=== PATIENT | female | born 1990 | race Caucasian/White ===

== ENCOUNTER 2022-11-30 01:42 | Outpatient (RCR) | payer OTHER, SELFPAY ==
[2022-11-30] MEDS: Normal Saline Flush 10 ML SYR IVP (11:32)
[2022-11-30 11:39] LABS: Abs Immature Grans 0.04 10^3/uL (0.0-0.06); Absolute Basophil Count 0.01 10^3/uL (0.0-0.2); Absolute Eosinophil Count 0.11 10^3/uL (0.0-0.7); Absolute Lymphocyte Count 0.38 10^3/uL (1.2-3.4); Absolute Monocyte Count 0.54 10^3/uL (0.1-0.8); Absolute Neutrophil Count 9.12 10^3/uL (1.2-6.7); Basophils % 0.1; Eosinophils % 1.1; HGB 9.6 g/dL (11.2-15.7); Immature Grans % 0.4; Lymphocytes % 3.7; MCH 24.3 pg (27.0-33.0); MCV 79 fL (80-95); MPV 9.8 fL (8.0-11.0); Monocytes % 5.3; Neutrophils % 89.4; Platelet Count 384 10^3/uL (130-400); RBC 3.95 10^6/uL (3.93-5.22); RDW 15.6 % (11.7-14.6); RDW-SD 44.5 fL
[2022-11-30 11:42] LABS: ESR 66 mm/hr (0-20)
[2022-11-30 12:04] LABS: ALT 24 U/L (14-59); AST 13 U/L (15-37); Albumin 2.6 g/dL (3.4-5.0); Alkaline Phosphatase 151 U/L (46-116); Anion Gap 6.6 mmol/L (3-11); BUN 7 mg/dL (7-18); Bilirubin, Total 0.4 mg/dL (0.2-1.0); CO2 27.4 mmol/L (21.0-32.0); CREATININE 0.7 mg/dL (0.55-1.02); Calcium 8.9 mg/dL (8.5-10.1); Chloride 102 mmol/L (98-107); Estimated GFR 116.31 (mL/min/1.73m2); FREE T4 1.19 ng/dL (0.76-1.46); Glucose 126 mg/dL (74-106); Magnesium 1.9 mg/dL (1.8-2.4); PHOSPHORUS 3.6 mg/dL (2.6-4.7); Potassium 3.9 mmol/L (3.5-5.1); Sodium 136 mmol/L (136-145); TSH 1.41 uIU/mL (0.36-3.74); Total Protein 7.6 g/dL (6.4-8.2); Uric Acid 3.1 mg/dL (2.6-6.0)
== END 2022-12-15 23:59 | disposition home or self-care (01) ==
LOC: INF 01:42
PROVIDERS: PCP Physician Assistant; Visit Provider Internal Medicine Hematology & Oncology
DX: Z45.2 Encounter for adjustment and management of vascular access device (principal); C81.28 Mixed cellularity Hodgkin lymphoma, lymph nodes of multiple sites
CPT/HCPCS: 36591; 80053; 85652; 83735; 84100; 84439; 84443; 84550; 85025

== ENCOUNTER 2023-01-10 02:42 | Outpatient (RCR) | payer OTHER, SELFPAY ==
[2022-12-20] MEDS: Normal Saline Flush 10 ML SYR IVP (09:52)
[2022-12-20 10:31] LABS: Abs Immature Grans 0.01 10^3/uL (0.0-0.06); Absolute Basophil Count 0.05 10^3/uL (0.0-0.2); Absolute Eosinophil Count 0.01 10^3/uL (0.0-0.7); Absolute Lymphocyte Count 1.08 10^3/uL (1.2-3.4); Absolute Monocyte Count 0.32 10^3/uL (0.1-0.8); Absolute Neutrophil Count 2.07 10^3/uL (1.2-6.7); Basophils % 1.4; Eosinophils % 0.3; HGB 11.5 g/dL (11.2-15.7); Immature Grans % 0.3; Lymphocytes % 30.5; MCHC 31.1 % (32.0-36.0); MCV 80 fL (80-95); MPV 9.4 fL (8.0-11.0); Neutrophils % 58.5; Platelet Count 282 10^3/uL (130-400); RDW 19.9 % (11.7-14.6); WBC 3.54 10^3/uL (4.4-10.8)
[2022-12-20 10:34] LABS: ESR 38 mm/hr (0-20)
[2022-12-20 10:55] LABS: ALT 42 U/L (14-59); AST 33 U/L (15-37); Albumin 3.7 g/dL (3.4-5.0); Alkaline Phosphatase 95 U/L (46-116); Anion Gap 8.9 mmol/L (3-11); BUN 9 mg/dL (7-18); Bilirubin, Total 0.5 mg/dL (0.2-1.0); CO2 26.1 mmol/L (21.0-32.0); CREATININE 0.7 mg/dL (0.55-1.02); Calcium 9.3 mg/dL (8.5-10.1); Chloride 103 mmol/L (98-107); Estimated GFR 116.31 (mL/min/1.73m2); Glucose 117 mg/dL (74-106); Magnesium 1.9 mg/dL (1.8-2.4); PHOSPHORUS 3.4 mg/dL (2.6-4.7); Potassium 3.6 mmol/L (3.5-5.1); Sodium 138 mmol/L (136-145); TSH 4.86 uIU/mL (0.36-3.74); Total Protein 8.1 g/dL (6.4-8.2); Uric Acid 3.7 mg/dL (2.6-6.0)
[2023-01-10] MEDS: Normal Saline Flush 10 ML SYR IVP (09:39)
[2023-01-10 09:51] LABS: Abs Immature Grans 0.01 10^3/uL (0.0-0.06); Absolute Basophil Count 0.03 10^3/uL (0.0-0.2); Absolute Eosinophil Count 0.03 10^3/uL (0.0-0.7); Absolute Lymphocyte Count 0.95 10^3/uL (1.2-3.4); Absolute Monocyte Count 0.39 10^3/uL (0.1-0.8); Basophils % 0.8; Eosinophils % 0.8; HCT 37.3 % (36.0-46.0); HGB 12.4 g/dL (11.2-15.7); Immature Grans % 0.3; Lymphocytes % 23.9; MCH 26.8 pg (27.0-33.0); MCHC 33.2 % (32.0-36.0); MCV 81 fL (80-95); MPV 9.5 fL (8.0-11.0); Monocytes % 9.8; Neutrophils % 64.4; Platelet Count 266 10^3/uL (130-400); RBC 4.62 10^6/uL (3.93-5.22); RDW 18.8 % (11.7-14.6); RDW-SD 54.9 fL; WBC 3.98 10^3/uL (4.4-10.8)
[2023-01-10 09:54] LABS: Absolute Neutrophil Count 2.56 10^3/uL (1.2-6.7)
[2023-01-10 09:56] LABS: ESR 24 mm/hr (0-20)
[2023-01-10 10:21] LABS: ALT 38 U/L (14-59); AST 23 U/L (15-37); Albumin 3.8 g/dL (3.4-5.0); Alkaline Phosphatase 87 U/L (46-116); Anion Gap 8.7 mmol/L (3-11); BUN 11 mg/dL (7-18); Bilirubin, Total 0.4 mg/dL (0.2-1.0); CO2 26.3 mmol/L (21.0-32.0); CREATININE 0.6 mg/dL (0.55-1.02); Calcium 9.5 mg/dL (8.5-10.1); Chloride 103 mmol/L (98-107); Estimated GFR 120.72 (mL/min/1.73m2); FREE T4 0.78 ng/dL (0.76-1.46); Glucose 98 mg/dL (74-106); Magnesium 1.8 mg/dL (1.8-2.4); PHOSPHORUS 3.7 mg/dL (2.6-4.7); Potassium 3.7 mmol/L (3.5-5.1); Sodium 138 mmol/L (136-145); TSH 3.97 uIU/mL (0.36-3.74); Total Protein 8.2 g/dL (6.4-8.2); Uric Acid 3.8 mg/dL (2.6-6.0)
== END 2023-01-14 23:59 | disposition home or self-care (01) ==
LOC: INF 02:42
PROVIDERS: PCP Physician Assistant; Visit Provider Internal Medicine Hematology & Oncology
DX: Z45.2 Encounter for adjustment and management of vascular access device (principal); C81.28 Mixed cellularity Hodgkin lymphoma, lymph nodes of multiple sites
CPT/HCPCS: 36591; 80053; 85652; 83735; 84100; 84439; 84443; 84550; 85025

== ENCOUNTER 2023-01-31 02:45 | Outpatient (RCR) | payer OTHER, SELFPAY ==
[2023-01-31] MEDS: Normal Saline Flush 10 ML SYR IVP (08:22)
[2023-01-31 08:25] LABS: Abs Immature Grans 0.01 10^3/uL (0.0-0.06); Absolute Basophil Count 0.03 10^3/uL (0.0-0.2); Absolute Eosinophil Count 0.03 10^3/uL (0.0-0.7); Absolute Lymphocyte Count 0.91 10^3/uL (1.2-3.4); Absolute Monocyte Count 0.32 10^3/uL (0.1-0.8); Absolute Neutrophil Count 1.68 10^3/uL (1.2-6.7); HCT 37.9 % (36.0-46.0); HGB 12.4 g/dL (11.2-15.7); Immature Grans % 0.3; Lymphocytes % 30.5; MCH 26.8 pg (27.0-33.0); MCHC 32.7 % (32.0-36.0); MCV 82 fL (80-95); MPV 9.1 fL (8.0-11.0); Monocytes % 10.7; Neutrophils % 56.5; Platelet Count 236 10^3/uL (130-400); RBC 4.63 10^6/uL (3.93-5.22); RDW 17.4 % (11.7-14.6); RDW-SD 51.7 fL; WBC 2.98 10^3/uL (4.4-10.8)
[2023-01-31 08:28] LABS: ESR 13 mm/hr (0-20)
[2023-01-31 08:53] LABS: ALT 37 U/L (14-59); AST 23 U/L (15-37); Albumin 3.8 g/dL (3.4-5.0); Alkaline Phosphatase 87 U/L (46-116); Anion Gap 10.1 mmol/L (3-11); BUN 12 mg/dL (7-18); Bilirubin, Total 0.5 mg/dL (0.2-1.0); CO2 25.9 mmol/L (21.0-32.0); CREATININE 0.7 mg/dL (0.55-1.02); Calcium 9.5 mg/dL (8.5-10.1); Chloride 103 mmol/L (98-107); Estimated GFR 116.31 (mL/min/1.73m2); FREE T4 0.69 ng/dL (0.76-1.46); Glucose 116 mg/dL (74-106); Magnesium 1.7 mg/dL (1.8-2.4); PHOSPHORUS 3.9 mg/dL (2.6-4.7); Potassium 3.6 mmol/L (3.5-5.1); Sodium 139 mmol/L (136-145); TSH 3.42 uIU/mL (0.36-3.74); Uric Acid 3.3 mg/dL (2.6-6.0)
== END 2023-02-14 23:59 | disposition home or self-care (01) ==
LOC: INF 02:45
PROVIDERS: PCP Physician Assistant; Visit Provider Internal Medicine Hematology & Oncology
DX: C81.28 Mixed cellularity Hodgkin lymphoma, lymph nodes of multiple sites (principal); Z45.2 Encounter for adjustment and management of vascular access device
CPT/HCPCS: 36591; 80053; 85652; 83735; 84100; 84439; 84443; 84550; 85025

== ENCOUNTER 2023-03-07 02:18 | Outpatient (RCR) | payer OTHER, SELFPAY ==
[2023-02-21] MEDS: Normal Saline Flush 10 ML SYR IVP (09:57)
[2023-02-21 10:10] LABS: Abs Immature Grans 0.01 10^3/uL (0.0-0.06); Absolute Basophil Count 0.03 10^3/uL (0.0-0.2); Absolute Eosinophil Count 0.01 10^3/uL (0.0-0.7); Absolute Monocyte Count 0.39 10^3/uL (0.1-0.8); Absolute Neutrophil Count 2.59 10^3/uL (1.2-6.7); Basophils % 0.7; Eosinophils % 0.2; HCT 38.7 % (36.0-46.0); Immature Grans % 0.2; Lymphocytes % 28.4; MCH 27.7 pg (27.0-33.0); MCHC 33.6 % (32.0-36.0); MCV 83 fL (80-95); MPV 9.6 fL (8.0-11.0); Monocytes % 9.2; Neutrophils % 61.3; Platelet Count 298 10^3/uL (130-400); RBC 4.69 10^6/uL (3.93-5.22); RDW 16.8 % (11.7-14.6); RDW-SD 50.4 fL; WBC 4.23 10^3/uL (4.4-10.8)
[2023-02-21 10:17] LABS: ESR 24 mm/hr (0-20)
[2023-02-21 10:43] LABS: ALT 45 U/L (14-59); AST 24 U/L (15-37); Albumin 4.1 g/dL (3.4-5.0); Alkaline Phosphatase 93 U/L (46-116); Anion Gap 7.2 mmol/L (3-11); BUN 11 mg/dL (7-18); Bilirubin, Total 0.5 mg/dL (0.2-1.0); CO2 27.8 mmol/L (21.0-32.0); CREATININE 0.7 mg/dL (0.55-1.02); Calcium 9.6 mg/dL (8.5-10.1); Chloride 102 mmol/L (98-107); Estimated GFR 116.31 (mL/min/1.73m2); FREE T4 0.77 ng/dL (0.76-1.46); Glucose 98 mg/dL (74-106); Magnesium 1.9 mg/dL (1.8-2.4); PHOSPHORUS 3.7 mg/dL (2.6-4.7); Sodium 137 mmol/L (136-145); Total Protein 8.5 g/dL (6.4-8.2)
[2023-03-07] MEDS: Normal Saline Flush 10 ML SYR IVP (11:32)
[2023-03-07 11:43] LABS: Absolute Basophil Count 0.01 10^3/uL (0.0-0.2); Absolute Eosinophil Count 0.08 10^3/uL (0.0-0.7); Absolute Lymphocyte Count 0.84 10^3/uL (1.2-3.4); Absolute Monocyte Count 0.21 10^3/uL (0.1-0.8); Absolute Neutrophil Count 1.42 10^3/uL (1.2-6.7); Basophils % 0.4; Eosinophils % 3.1; Lymphocytes % 32.8; MCH 28.1 pg (27.0-33.0); MCHC 34.3 % (32.0-36.0); MCV 82 fL (80-95); MPV 9.3 fL (8.0-11.0); Monocytes % 8.2; Neutrophils % 55.5; Platelet Count 133 10^3/uL (130-400); RBC 4.27 10^6/uL (3.93-5.22); RDW 14.8 % (11.7-14.6); WBC 2.56 10^3/uL (4.4-10.8)
[2023-03-07 11:46] LABS: ESR 28 mm/hr (0-20)
[2023-03-07 12:06] LABS: ALT 77 U/L (14-59); AST 36 U/L (15-37); Albumin 3.9 g/dL (3.4-5.0); Alkaline Phosphatase 106 U/L (46-116); Anion Gap 6.8 mmol/L (3-11); BUN 11 mg/dL (7-18); Bilirubin, Total 0.6 mg/dL (0.2-1.0); CO2 30.2 mmol/L (21.0-32.0); CREATININE 0.7 mg/dL (0.55-1.02); Calcium 9.3 mg/dL (8.5-10.1); Chloride 102 mmol/L (98-107); Estimated GFR 116.31 (mL/min/1.73m2); FREE T4 0.68 ng/dL (0.76-1.46); Glucose 107 mg/dL (74-106); Sodium 139 mmol/L (136-145); TSH 2.77 uIU/mL (0.36-3.74); Total Protein 8.4 g/dL (6.4-8.2)
== END 2023-03-16 23:59 | disposition home or self-care (01) ==
LOC: INF 02:18
PROVIDERS: PCP Physician Assistant; Visit Provider Internal Medicine Hematology & Oncology
DX: Z45.2 Encounter for adjustment and management of vascular access device (principal); C81.28 Mixed cellularity Hodgkin lymphoma, lymph nodes of multiple sites
CPT/HCPCS: 36591; 80053; 85652; 83735; 84100; 84439; 84443; 84550; 85025

== ENCOUNTER 2023-03-28 02:25 | Outpatient (RCR) | payer OTHER, SELFPAY ==
[2023-03-21] MEDS: Normal Saline Flush 10 ML SYR IVP (08:35)
[2023-03-21 09:07] LABS: Abs Immature Grans 0.12 10^3/uL (0.0-0.06); Absolute Basophil Count 0.03 10^3/uL (0.0-0.2); Absolute Eosinophil Count 0.15 10^3/uL (0.0-0.7); Absolute Lymphocyte Count 1.07 10^3/uL (1.2-3.4); Absolute Monocyte Count 0.31 10^3/uL (0.1-0.8); Absolute Neutrophil Count 4.11 10^3/uL (1.2-6.7); Basophils % 0.5; Eosinophils % 2.6; HCT 34.4 % (36.0-46.0); HGB 11.7 g/dL (11.2-15.7); Immature Grans % 2.1; Lymphocytes % 18.5; MCH 28.6 pg (27.0-33.0); MCV 84 fL (80-95); MPV 9.5 fL (8.0-11.0); Monocytes % 5.4; Neutrophils % 70.9; Platelet Count 388 10^3/uL (130-400); RBC 4.09 10^6/uL (3.93-5.22); RDW 16.2 % (11.7-14.6); RDW-SD 42.4 fL; WBC 5.79 10^3/uL (4.4-10.8)
[2023-03-21 09:11] LABS: ESR 24 mm/hr (0-20)
[2023-03-21 09:26] LABS: ALT 77 U/L (14-59); AST 38 U/L (15-37); Albumin 3.9 g/dL (3.4-5.0); Alkaline Phosphatase 108 U/L (46-116); Anion Gap 10.5 mmol/L (3-11); BUN 10 mg/dL (7-18); Bilirubin, Total 0.3 mg/dL (0.2-1.0); CO2 27.5 mmol/L (21.0-32.0); CREATININE 0.8 mg/dL (0.55-1.02); Calcium 9.3 mg/dL (8.5-10.1); Chloride 102 mmol/L (98-107); Estimated GFR 99.09 (mL/min/1.73m2); FREE T4 0.82 ng/dL (0.76-1.46); Glucose 132 mg/dL (74-106); Potassium 3.5 mmol/L (3.5-5.1); Sodium 140 mmol/L (136-145); TSH 5.37 uIU/mL (0.36-3.74); Total Protein 8.1 g/dL (6.4-8.2)
[2023-03-28] MEDS: Normal Saline Flush 10 ML SYR IVP (08:06)
[2023-03-28 08:15] LABS: Abs Immature Grans 0.01 10^3/uL (0.0-0.06); Absolute Basophil Count 0.02 10^3/uL (0.0-0.2); Absolute Eosinophil Count 0.03 10^3/uL (0.0-0.7); Absolute Lymphocyte Count 0.69 10^3/uL (1.2-3.4); Absolute Monocyte Count 0.25 10^3/uL (0.1-0.8); Basophils % 0.9; Eosinophils % 1.4; HCT 31.5 % (36.0-46.0); HGB 10.7 g/dL (11.2-15.7); Immature Grans % 0.5; Lymphocytes % 31.4; MCH 28.5 pg (27.0-33.0); MCV 84 fL (80-95); MPV 9.1 fL (8.0-11.0); Monocytes % 11.4; Neutrophils % 54.4; Platelet Count 247 10^3/uL (130-400); RBC 3.76 10^6/uL (3.93-5.22); RDW 15.6 % (11.7-14.6); RDW-SD 45.5 fL
[2023-03-28 08:34] LABS: ALT 136 U/L (14-59); AST 67 U/L (15-37); Albumin 3.7 g/dL (3.4-5.0); Alkaline Phosphatase 101 U/L (46-116); Anion Gap 9.2 mmol/L (3-11); BUN 10 mg/dL (7-18); Bilirubin, Total 0.5 mg/dL (0.2-1.0); CO2 27.8 mmol/L (21.0-32.0); CREATININE 0.7 mg/dL (0.55-1.02); Calcium 9.2 mg/dL (8.5-10.1); Chloride 105 mmol/L (98-107); Estimated GFR 116.31 (mL/min/1.73m2); FREE T4 0.82 ng/dL (0.76-1.46); Glucose 107 mg/dL (74-106); Potassium 3.6 mmol/L (3.5-5.1); Sodium 142 mmol/L (136-145); TSH 4.95 uIU/mL (0.36-3.74); Total Protein 7.7 g/dL (6.4-8.2)
[2023-03-28 08:37] LABS: ESR 23 mm/hr (0-20)
== END 2023-04-16 23:59 | disposition home or self-care (01) ==
LOC: INF 02:25
PROVIDERS: PCP Physician Assistant; Visit Provider Internal Medicine Hematology & Oncology
DX: Z45.2 Encounter for adjustment and management of vascular access device (principal); C81.28 Mixed cellularity Hodgkin lymphoma, lymph nodes of multiple sites
CPT/HCPCS: 36591; 80053; 85652; 84439; 84443; 85025

== ENCOUNTER 2023-07-04 03:29 | Outpatient (RCR) | payer OTHER, SELFPAY ==
[2023-06-27] MEDS: Normal Saline Flush 10 ML SYR IVP (09:45)
[2023-06-27 09:59] LABS: HGB 8.9 g/dL (11.2-15.7); MCH 27.8 pg (27.0-33.0); MCV 84 fL (80-95); MPV 11.9 fL (8.0-11.0); RDW 12.5 % (11.7-14.6); RDW-SD 37.1 fL; WBC 4.71 10^3/uL (4.4-10.8)
[2023-06-27 10:20] LABS: ALT 31 U/L (14-59); AST 21 U/L (15-37); Albumin 3.5 g/dL (3.4-5.0); Alkaline Phosphatase 84 U/L (46-116); Anion Gap 10.6 mmol/L (3-11); BUN 8 mg/dL (7-18); Bilirubin, Total 0.4 mg/dL (0.2-1.0); CO2 25.4 mmol/L (21.0-32.0); CREATININE 0.7 mg/dL (0.55-1.02); Calcium 9.5 mg/dL (8.5-10.1); Chloride 103 mmol/L (98-107); Estimated GFR 116.31 (mL/min/1.73m2); Glucose 108 mg/dL (74-106); Magnesium 2.2 mg/dL (1.8-2.4); Potassium 3.9 mmol/L (3.5-5.1); Sodium 139 mmol/L (136-145); Total Protein 8.2 g/dL (6.4-8.2)
[2023-06-27 10:55] LABS: Absolute Lymphocyte Count 0.89 10^3/uL (1.2-3.4); Absolute Monocyte Count 0.52 10^3/uL (0.1-0.8); Absolute Neutrophil Count 2.68 10^3/uL (1.2-6.7); Atypical Lymphocytes % 4; Bands % 7; Metamyelocytes % 2; Myelocytes % 6; Platelet Count 74 10^3/uL (130-400)
[2023-06-27 10:56] LABS: Diff Comment Manual Differential; Other Cells % 5; RBC Morphology Normal
[2023-07-04 09:53] LABS: Abs Immature Grans 0.01 10^3/uL (0.0-0.06); Absolute Basophil Count 0.02 10^3/uL (0.0-0.2); Absolute Lymphocyte Count 0.63 10^3/uL (1.2-3.4); Absolute Monocyte Count 0.35 10^3/uL (0.1-0.8); Absolute Neutrophil Count 1.04 10^3/uL (1.2-6.7); HCT 30.2 % (36.0-46.0); Immature Grans % 0.5; Lymphocytes % 30.7; MCH 28.7 pg (27.0-33.0); MCHC 33.1 % (32.0-36.0); MCV 87 fL (80-95); MPV 10.2 fL (8.0-11.0); Monocytes % 17.1; Neutrophils % 50.7; Platelet Count 153 10^3/uL (130-400); RBC 3.49 10^6/uL (3.93-5.22); RDW-SD 40.1 fL; WBC 2.05 10^3/uL (4.4-10.8)
[2023-07-04 10:07] LABS: ALT 37 U/L (14-59); AST 24 U/L (15-37); Albumin 3.8 g/dL (3.4-5.0); Alkaline Phosphatase 76 U/L (46-116); Anion Gap 8.5 mmol/L (3-11); BUN 11 mg/dL (7-18); Bilirubin, Total 0.3 mg/dL (0.2-1.0); CO2 26.5 mmol/L (21.0-32.0); CREATININE 0.7 mg/dL (0.55-1.02); Calcium 9.6 mg/dL (8.5-10.1); Chloride 103 mmol/L (98-107); Estimated GFR 116.31 (mL/min/1.73m2); Glucose 102 mg/dL (74-106); Magnesium 2.1 mg/dL (1.8-2.4); Sodium 138 mmol/L (136-145)
[2023-07-04] MEDS: Normal Saline Flush 10 ML SYR IVP (11:42)
== END 2023-07-17 23:59 | disposition home or self-care (01) ==
LOC: INF 03:29
PROVIDERS: PCP Physician Assistant; Visit Provider Internal Medicine Hematology & Oncology
DX: C81.28 Mixed cellularity Hodgkin lymphoma, lymph nodes of multiple sites (principal); Z52.011 Autologous donor, stem cells; Z45.2 Encounter for adjustment and management of vascular access device
CPT/HCPCS: 36591; 80053; 86850; 86900; 86901; 83735; 85025

== ENCOUNTER 2023-08-15 02:58 | Outpatient (RCR) | payer OTHER, SELFPAY ==
[2023-07-18] MEDS: Normal Saline Flush 10 ML SYR IVP (11:14)
[2023-07-18 11:25] LABS: Abs Immature Grans 0.01 10^3/uL (0.0-0.06); Absolute Basophil Count 0.03 10^3/uL (0.0-0.2); Absolute Eosinophil Count 0.38 10^3/uL (0.0-0.7); Absolute Lymphocyte Count 0.86 10^3/uL (1.2-3.4); Absolute Monocyte Count 0.48 10^3/uL (0.1-0.8); Absolute Neutrophil Count 2.03 10^3/uL (1.2-6.7); Basophils % 0.8; HCT 34.1 % (36.0-46.0); HGB 11.5 g/dL (11.2-15.7); Immature Grans % 0.3; Lymphocytes % 22.7; MCH 29.9 pg (27.0-33.0); MCHC 33.7 % (32.0-36.0); MCV 89 fL (80-95); MPV 9.3 fL (8.0-11.0); Monocytes % 12.7; Neutrophils % 53.5; Platelet Count 179 10^3/uL (130-400); RBC 3.85 10^6/uL (3.93-5.22); RDW 18.6 % (11.7-14.6); WBC 3.79 10^3/uL (4.4-10.8)
[2023-07-18 11:41] LABS: ALT 38 U/L (14-59); AST 25 U/L (15-37); Alkaline Phosphatase 72 U/L (46-116); Anion Gap 10.2 mmol/L (3-11); BUN 9 mg/dL (7-18); Bilirubin, Total 0.4 mg/dL (0.2-1.0); CO2 25.8 mmol/L (21.0-32.0); CREATININE 0.6 mg/dL (0.55-1.02); Calcium 9.8 mg/dL (8.5-10.1); Chloride 101 mmol/L (98-107); Estimated GFR 119.97 (mL/min/1.73m2); Glucose 122 mg/dL (74-106); Magnesium 1.9 mg/dL (1.8-2.4); Potassium 3.7 mmol/L (3.5-5.1); Sodium 137 mmol/L (136-145)
[2023-08-15] MEDS: Normal Saline Flush 10 ML SYR IVP (10:19)
[2023-08-15 10:26] LABS: Abs Immature Grans 0.02 10^3/uL (0.0-0.06); Absolute Basophil Count 0.02 10^3/uL (0.0-0.2); Absolute Eosinophil Count 0.18 10^3/uL (0.0-0.7); Absolute Lymphocyte Count 0.85 10^3/uL (1.2-3.4); Absolute Monocyte Count 0.42 10^3/uL (0.1-0.8); Absolute Neutrophil Count 2.87 10^3/uL (1.2-6.7); Basophils % 0.5; Eosinophils % 4.1; HCT 34.7 % (36.0-46.0); HGB 11.7 g/dL (11.2-15.7); Immature Grans % 0.5; Lymphocytes % 19.5; MCH 28.9 pg (27.0-33.0); MCHC 33.7 % (32.0-36.0); MCV 86 fL (80-95); MPV 9.1 fL (8.0-11.0); Monocytes % 9.6; Neutrophils % 65.8; Platelet Count 217 10^3/uL (130-400); RBC 4.05 10^6/uL (3.93-5.22); RDW 14.9 % (11.7-14.6); RDW-SD 46.9 fL; WBC 4.36 10^3/uL (4.4-10.8)
[2023-08-15 10:40] LABS: ALT 26 U/L (14-59); AST 22 U/L (15-37); Albumin 3.5 g/dL (3.4-5.0); Alkaline Phosphatase 100 U/L (46-116); Anion Gap 10.2 mmol/L (3-11); BUN 12 mg/dL (7-18); Bilirubin, Total 0.5 mg/dL (0.2-1.0); CO2 26.8 mmol/L (21.0-32.0); CREATININE 0.7 mg/dL (0.55-1.02); Calcium 9.7 mg/dL (8.5-10.1); Chloride 103 mmol/L (98-107); Estimated GFR 115.59 (mL/min/1.73m2); Glucose 103 mg/dL (74-106); Potassium 3.9 mmol/L (3.5-5.1); Sodium 140 mmol/L (136-145); Total Protein 7.9 g/dL (6.4-8.2)
== END 2023-08-16 23:59 | disposition home or self-care (01) ==
LOC: INF 02:58
PROVIDERS: PCP Physician Assistant; Visit Provider Internal Medicine Hematology & Oncology
DX: C81.28 Mixed cellularity Hodgkin lymphoma, lymph nodes of multiple sites (principal); Z52.011 Autologous donor, stem cells; Z45.2 Encounter for adjustment and management of vascular access device
CPT/HCPCS: 36591; 80053; 86900; 86901; 83735; 85025

== ENCOUNTER 2023-10-17 03:27 | Outpatient (RCR) | payer OTHER, SELFPAY ==
[2023-10-17] MEDS: Normal Saline Flush 10 ML SYR IVP (10:49)
[2023-10-17 11:01] LABS: Absolute Basophil Count 0.02 10^3/uL (0.0-0.2); Absolute Eosinophil Count 0.13 10^3/uL (0.0-0.7); Absolute Lymphocyte Count 1.02 10^3/uL (1.2-3.4); Absolute Monocyte Count 0.26 10^3/uL (0.1-0.8); Basophils % 0.6; Eosinophils % 3.9; HCT 36.2 % (36.0-46.0); HGB 12.6 g/dL (11.2-15.7); Lymphocytes % 30.6; MCH 29.4 pg (27.0-33.0); MCHC 34.8 % (32.0-36.0); MCV 84 fL (80-95); MPV 10.2 fL (8.0-11.0); Monocytes % 7.8; Neutrophils % 57.1; Platelet Count 174 10^3/uL (130-400); RBC 4.29 10^6/uL (3.93-5.22); RDW 13.6 % (11.7-14.6); RDW-SD 41.7 fL; WBC 3.33 10^3/uL (4.4-10.8)
[2023-10-17 11:21] LABS: ALT 39 U/L (14-59); AST 22 U/L (15-37); Albumin 3.9 g/dL (3.4-5.0); Alkaline Phosphatase 75 U/L (46-116); Anion Gap 10.4 mmol/L (3-11); BUN 14 mg/dL (7-18); Bilirubin, Total 0.5 mg/dL (0.2-1.0); CO2 25.6 mmol/L (21.0-32.0); CREATININE 0.7 mg/dL (0.55-1.02); Calcium 9.7 mg/dL (8.5-10.1); Chloride 104 mmol/L (98-107); Estimated GFR 115.59 (mL/min/1.73m2); Glucose 111 mg/dL (74-106); Magnesium 1.8 mg/dL (1.8-2.4); Potassium 3.8 mmol/L (3.5-5.1); Sodium 140 mmol/L (136-145); Total Protein 7.9 g/dL (6.4-8.2)
== END 2023-10-17 23:59 | disposition home or self-care (01) ==
LOC: INF 03:27
PROVIDERS: PCP Physician Assistant; Visit Provider Internal Medicine Hematology & Oncology
DX: C81.28 Mixed cellularity Hodgkin lymphoma, lymph nodes of multiple sites (principal); Z52.011 Autologous donor, stem cells; Z45.2 Encounter for adjustment and management of vascular access device
CPT/HCPCS: 36591; 80053; 83735; 85025

== ENCOUNTER 2023-11-14 02:40 | Outpatient (RCR) | payer OTHER, SELFPAY ==
[2023-11-07] MEDS: Normal Saline Flush 10 ML SYR IVP (09:14)
[2023-11-07 09:36] LABS: Absolute Basophil Count 0.02 10^3/uL (0.0-0.2); Absolute Eosinophil Count 0.01 10^3/uL (0.0-0.7); Absolute Lymphocyte Count 0.81 10^3/uL (1.2-3.4); Absolute Monocyte Count 0.43 10^3/uL (0.1-0.8); Absolute Neutrophil Count 0.94 10^3/uL (1.2-6.7); Basophils % 0.9; Eosinophils % 0.5; HCT 35.1 % (36.0-46.0); HGB 12.2 g/dL (11.2-15.7); Lymphocytes % 36.7; MCH 29.3 pg (27.0-33.0); MCHC 34.8 % (32.0-36.0); MCV 84 fL (80-95); Monocytes % 19.5; Neutrophils % 42.4; Platelet Count 189 10^3/uL (130-400); RBC 4.16 10^6/uL (3.93-5.22); RDW 14.6 % (11.7-14.6); RDW-SD 43.7 fL; WBC 2.21 10^3/uL (4.4-10.8)
[2023-11-07 09:59] LABS: Diff Comment Agrees w/ Instrument; RBC Morphology Normal
[2023-11-07 10:12] LABS: ALT 51 U/L (14-59); AST 28 U/L (15-37); Albumin 3.8 g/dL (3.4-5.0); Alkaline Phosphatase 80 U/L (46-116); Anion Gap 10.2 mmol/L (3-11); BUN 13 mg/dL (7-18); Bilirubin, Total 0.5 mg/dL (0.2-1.0); CO2 25.8 mmol/L (21.0-32.0); CREATININE 0.7 mg/dL (0.55-1.02); Calcium 9.5 mg/dL (8.5-10.1); Chloride 106 mmol/L (98-107); Estimated GFR 115.59 (mL/min/1.73m2); Glucose 84 mg/dL (74-106); Magnesium 1.8 mg/dL (1.8-2.4); Potassium 3.8 mmol/L (3.5-5.1); Sodium 142 mmol/L (136-145); Total Protein 7.7 g/dL (6.4-8.2)
[2023-11-07 10:46] LABS: ESR 14 mm/hr (0-20)
[2023-11-07 11:08] LABS: FREE T4 0.71 ng/dL (0.76-1.46); TSH 3.66 uIU/mL (0.36-3.74)
[2023-11-14] MEDS: Normal Saline Flush 10 ML SYR IVP (09:22)
[2023-11-14 09:34] LABS: Abs Immature Grans 0.01 10^3/uL (0.0-0.06); Absolute Basophil Count 0.02 10^3/uL (0.0-0.2); Absolute Eosinophil Count 0.08 10^3/uL (0.0-0.7); Absolute Lymphocyte Count 0.93 10^3/uL (1.2-3.4); Absolute Monocyte Count 0.35 10^3/uL (0.1-0.8); Absolute Neutrophil Count 2.44 10^3/uL (1.2-6.7); Basophils % 0.5; Eosinophils % 2.1; HCT 37.6 % (36.0-46.0); HGB 12.8 g/dL (11.2-15.7); Immature Grans % 0.3; Lymphocytes % 24.3; MCV 85 fL (80-95); MPV 9.2 fL (8.0-11.0); Monocytes % 9.1; Neutrophils % 63.7; Platelet Count 189 10^3/uL (130-400); RBC 4.42 10^6/uL (3.93-5.22); RDW 14.9 % (11.7-14.6); RDW-SD 46.2 fL; WBC 3.83 10^3/uL (4.4-10.8)
== END 2023-11-15 23:59 | disposition home or self-care (01) ==
LOC: INF 02:40
PROVIDERS: Nurse Practitioner Adult Health; PCP Physician Assistant; Visit Provider Internal Medicine Hematology & Oncology
DX: C81.28 Mixed cellularity Hodgkin lymphoma, lymph nodes of multiple sites (principal); Z52.011 Autologous donor, stem cells; Z45.2 Encounter for adjustment and management of vascular access device
CPT/HCPCS: 36591; 80053; 85652; 83735; 84439; 84443; 85025

== ENCOUNTER 2023-12-12 04:36 | Outpatient (RCR) | payer OTHER, SELFPAY ==
[2023-12-12 09:54] LABS: Absolute Basophil Count 0.02 10^3/uL (0.0-0.2); Absolute Eosinophil Count 0.06 10^3/uL (0.0-0.7); Absolute Lymphocyte Count 0.83 10^3/uL (1.2-3.4); Absolute Monocyte Count 0.28 10^3/uL (0.1-0.8); Absolute Neutrophil Count 2.16 10^3/uL (1.2-6.7); Basophils % 0.6; Eosinophils % 1.8; HCT 35.5 % (36.0-46.0); HGB 12.3 g/dL (11.2-15.7); Lymphocytes % 24.8; MCH 30.1 pg (27.0-33.0); MCHC 34.6 % (32.0-36.0); MCV 87 fL (80-95); MPV 10.1 fL (8.0-11.0); Monocytes % 8.4; Neutrophils % 64.4; Platelet Count 173 10^3/uL (130-400); RBC 4.09 10^6/uL (3.93-5.22); RDW-SD 47.4 fL; WBC 3.35 10^3/uL (4.4-10.8)
[2023-12-12 09:59] LABS: ESR 17 mm/hr (0-20)
[2023-12-12 10:08] LABS: ALT 54 U/L (14-59); AST 26 U/L (15-37); Albumin 3.8 g/dL (3.4-5.0); Alkaline Phosphatase 88 U/L (46-116); Anion Gap 8.6 mmol/L (3-11); BUN 12 mg/dL (7-18); Bilirubin, Total 0.5 mg/dL (0.2-1.0); CO2 26.4 mmol/L (21.0-32.0); CREATININE 0.7 mg/dL (0.55-1.02); Calcium 9.4 mg/dL (8.5-10.1); Chloride 105 mmol/L (98-107); Estimated GFR 115.59 (mL/min/1.73m2); Glucose 127 mg/dL (74-106); Potassium 3.8 mmol/L (3.5-5.1); Sodium 140 mmol/L (136-145); Total Protein 7.8 g/dL (6.4-8.2)
[2023-12-12] MEDS: Normal Saline Flush 10 ML SYR IVP (10:11)
== END 2023-12-16 23:59 | disposition home or self-care (01) ==
LOC: INF 04:36
PROVIDERS: PCP Physician Assistant; Visit Provider Internal Medicine Hematology & Oncology
DX: C81.28 Mixed cellularity Hodgkin lymphoma, lymph nodes of multiple sites (principal)
CPT/HCPCS: 36591; 80053; 85652; 85025

== ENCOUNTER 2024-03-05 04:35 | Outpatient (RCR) | payer OTHER, SELFPAY ==
[2024-03-05] MEDS: Normal Saline Flush 10 ML SYR IVP (09:30)
[2024-03-05 09:58] LABS: Abs Immature Grans 0.02 10^3/uL (0.0-0.06); Absolute Basophil Count 0.01 10^3/uL (0.0-0.2); Absolute Eosinophil Count 0.17 10^3/uL (0.0-0.7); Absolute Lymphocyte Count 0.18 10^3/uL (1.2-3.4); Absolute Neutrophil Count 2.39 10^3/uL (1.2-6.7); Basophils % 0.3 %; Eosinophils % 5.5 %; HCT 34.6 % (36.0-46.0); HGB 11.9 g/dL (11.2-15.7); Immature Grans % 0.7 %; Lymphocytes % 5.9 %; MCH 30.9 pg (27.0-33.0); MCHC 34.4 % (32.0-36.0); MCV 90 fL (80-95); MPV 9.3 fL (8.0-11.0); Monocytes % 9.8 %; Neutrophils % 77.8 %; Platelet Count 130 10^3/uL (130-400); RBC 3.85 10^6/uL (3.93-5.22); RDW 14.6 % (11.7-14.6); RDW-SD 46.6 fL; WBC 3.07 10^3/uL (4.4-10.8)
[2024-03-05 10:27] LABS: ALT 46 U/L (14-59); AST 29 U/L (15-37); Albumin 3.7 g/dL (3.4-5.0); Alkaline Phosphatase 94 U/L (46-116); Anion Gap 10.6 mmol/L (3-11); BUN 8 mg/dL (7-18); Bilirubin, Total 0.8 mg/dL (0.2-1.0); CO2 25.4 mmol/L (21.0-32.0); CREATININE 0.6 mg/dL (0.55-1.02); Calcium 8.7 mg/dL (8.5-10.1); Chloride 103 mmol/L (98-107); Estimated GFR 119.97 (mL/min/1.73m2); Glucose 92 mg/dL (74-106); Sodium 139 mmol/L (136-145); Total Protein 7.7 g/dL (6.4-8.2)
[2024-03-05 10:29] LABS: HCG Quant, Pregnancy < 1 mIU/mL (1-3)
== END 2024-03-16 23:59 | disposition home or self-care (01) ==
LOC: INF 04:35
PROVIDERS: PCP Physician Assistant; Visit Provider Internal Medicine Hematology & Oncology
DX: C81.28 Mixed cellularity Hodgkin lymphoma, lymph nodes of multiple sites (principal); Z52.011 Autologous donor, stem cells
CPT/HCPCS: 36591; 80053; 84702; 85025

== ENCOUNTER 2024-04-16 01:33 | Outpatient (RCR) | payer OTHER, SELFPAY ==
[2024-04-16] MEDS: Normal Saline Flush 10 ML SYR IVP (08:45)
[2024-04-16 08:59] LABS: Abs Immature Grans 0.01 10^3/uL (0.0-0.06); Absolute Basophil Count 0.02 10^3/uL (0.0-0.2); Absolute Eosinophil Count 0.14 10^3/uL (0.0-0.7); Absolute Lymphocyte Count 0.51 10^3/uL (1.2-3.4); Absolute Monocyte Count 0.27 10^3/uL (0.1-0.8); Absolute Neutrophil Count 2.12 10^3/uL (1.2-6.7); Basophils % 0.7 %; Eosinophils % 4.6 %; HCT 33.1 % (36.0-46.0); HGB 11.8 g/dL (11.2-15.7); Immature Grans % 0.3 %; Lymphocytes % 16.6 %; MCH 32.3 pg (27.0-33.0); MCHC 35.6 % (32.0-36.0); MCV 91 fL (80-95); MPV 9.6 fL (8.0-11.0); Monocytes % 8.8 %; Platelet Count 154 10^3/uL (130-400); RBC 3.65 10^6/uL (3.93-5.22); RDW 15.2 % (11.7-14.6); RDW-SD 49.9 fL; WBC 3.07 10^3/uL (4.4-10.8)
[2024-04-16 09:21] LABS: ALT 77 U/L (14-59); AST 40 U/L (15-37); Albumin 3.8 g/dL (3.4-5.0); Alkaline Phosphatase 107 U/L (46-116); Anion Gap 9.8 mmol/L (3-11); BUN 10 mg/dL (7-18); Bilirubin, Total 0.71 mg/dL (0.2-1.0); CO2 27.2 mmol/L (21.0-32.0); CREATININE 0.7 mg/dL (0.55-1.02); Calcium 9.3 mg/dL (8.5-10.1); Chloride 103 mmol/L (98-107); Estimated GFR 115.59 (mL/min/1.73m2); Glucose 113 mg/dL (74-106); HCG Quant, Pregnancy 1 mIU/mL (1-3); Potassium 3.4 mmol/L (3.5-5.1); Sodium 140 mmol/L (136-145); Total Protein 7.7 g/dL (6.4-8.2)
== END 2024-04-16 23:59 | disposition home or self-care (01) ==
LOC: INF 01:33
PROVIDERS: PCP Physician Assistant; Visit Provider Internal Medicine Hematology & Oncology
DX: C81.28 Mixed cellularity Hodgkin lymphoma, lymph nodes of multiple sites (principal); Z52.011 Autologous donor, stem cells; Z45.2 Encounter for adjustment and management of vascular access device
CPT/HCPCS: 36591; 80053; 84702; 85025

== ENCOUNTER 2024-05-14 02:43 | Outpatient (RCR) | payer OTHER, SELFPAY ==
[2024-05-14] MEDS: Normal Saline Flush 10 ML SYR IVP (11:20)
[2024-05-14 11:54] LABS: Abs Immature Grans 0.01 10^3/uL (0.0-0.06); Absolute Basophil Count 0.02 10^3/uL (0.0-0.2); Absolute Lymphocyte Count 0.69 10^3/uL (1.2-3.4); Absolute Monocyte Count 0.35 10^3/uL (0.1-0.8); Absolute Neutrophil Count 2.15 10^3/uL (1.2-6.7); Basophils % 0.6 %; HGB 11.7 g/dL (11.2-15.7); Immature Grans % 0.3 %; Lymphocytes % 21.4 %; MCH 32.4 pg (27.0-33.0); MCHC 34.4 % (32.0-36.0); MCV 94 fL (80-95); MPV 10.2 fL (8.0-11.0); Monocytes % 10.9 %; Neutrophils % 66.8 %; Platelet Count 142 10^3/uL (130-400); RBC 3.61 10^6/uL (3.93-5.22); RDW 15.2 % (11.7-14.6); RDW-SD 52.4 fL; WBC 3.22 10^3/uL (4.4-10.8)
[2024-05-14 12:19] LABS: ALT 80 U/L (14-59); AST 51 U/L (15-37); Albumin 3.7 g/dL (3.4-5.0); Alkaline Phosphatase 99 U/L (46-116); Anion Gap 9.1 mmol/L (3-11); BUN 8 mg/dL (7-18); Bilirubin, Total 0.75 mg/dL (0.2-1.0); CO2 26.9 mmol/L (21.0-32.0); CREATININE 0.6 mg/dL (0.55-1.02); Chloride 105 mmol/L (98-107); Estimated GFR 119.97 (mL/min/1.73m2); Glucose 95 mg/dL (74-106); Magnesium 1.8 mg/dL (1.8-2.4); Potassium 3.8 mmol/L (3.5-5.1); Sodium 141 mmol/L (136-145); Total Protein 7.4 g/dL (6.4-8.2)
[2024-05-14 12:24] LABS: HCG Quant, Pregnancy < 1 mIU/mL (1-3)
[2024-05-14 12:47] LABS: FREE T4 0.87 ng/dL (0.76-1.46)
[2024-05-14 13:45] LABS: ESR 14 mm/hr (0-20)
== END 2024-05-17 23:59 | disposition home or self-care (01) ==
LOC: INF 02:43
PROVIDERS: Nurse Practitioner Adult Health; PCP Physician Assistant; Visit Provider Internal Medicine Hematology & Oncology
DX: C81.28 Mixed cellularity Hodgkin lymphoma, lymph nodes of multiple sites (principal)
CPT/HCPCS: 36591; 80053; 85652; 83735; 84439; 84443; 84702; 85025

== ENCOUNTER 2024-06-11 02:13 | Outpatient (RCR) | payer OTHER, SELFPAY ==
[2024-06-11] MEDS: Normal Saline Flush 10 ML SYR IVP (09:17)
[2024-06-11 09:19] LABS: Abs Immature Grans 0.01 10^3/uL (0.0-0.06); Absolute Basophil Count 0.01 10^3/uL (0.0-0.2); Absolute Lymphocyte Count 0.59 10^3/uL (1.2-3.4); Absolute Monocyte Count 0.26 10^3/uL (0.1-0.8); Absolute Neutrophil Count 2.26 10^3/uL (1.2-6.7); Basophils % 0.3 %; HCT 33.4 % (36.0-46.0); HGB 11.7 g/dL (11.2-15.7); Immature Grans % 0.3 %; Lymphocytes % 18.8 %; MCH 32.8 pg (27.0-33.0); MCV 94 fL (80-95); MPV 9.9 fL (8.0-11.0); Monocytes % 8.3 %; Neutrophils % 72.3 %; Platelet Count 157 10^3/uL (130-400); RBC 3.57 10^6/uL (3.93-5.22); RDW 15.3 % (11.7-14.6); RDW-SD 52.2 fL; WBC 3.13 10^3/uL (4.4-10.8)
[2024-06-11 09:26] LABS: ESR 18 mm/hr (0-20)
[2024-06-11 09:34] LABS: ALT 76 U/L (14-59); AST 50 U/L (15-37); Albumin 3.8 g/dL (3.4-5.0); Alkaline Phosphatase 98 U/L (46-116); BUN 11 mg/dL (7-18); Bilirubin, Total 0.65 mg/dL (0.2-1.0); CREATININE 0.7 mg/dL (0.55-1.02); Calcium 9.3 mg/dL (8.5-10.1); Chloride 102 mmol/L (98-107); Estimated GFR 115.59 (mL/min/1.73m2); Glucose 118 mg/dL (74-106); Potassium 3.6 mmol/L (3.5-5.1); Sodium 137 mmol/L (136-145); Total Protein 7.9 g/dL (6.4-8.2)
[2024-06-13 10:27] LABS: Beta-HCG, Quant, Tumor Marker 0.6 IU/L
== END 2024-06-16 23:59 | disposition home or self-care (01) ==
LOC: INF 02:13
PROVIDERS: Nurse Practitioner Adult Health; PCP Physician Assistant; Visit Provider Internal Medicine Hematology & Oncology
DX: C81.28 Mixed cellularity Hodgkin lymphoma, lymph nodes of multiple sites (principal)
CPT/HCPCS: 36591; 80053; 85652; 84702; 85025

== ENCOUNTER 2024-07-09 03:13 | Outpatient (RCR) | payer OTHER, SELFPAY ==
[2024-07-09] MEDS: Normal Saline Flush 10 ML SYR IVP (09:48)
[2024-07-09 09:49] LABS: Abs Immature Grans 0.01 10^3/uL (0.0-0.06); Absolute Basophil Count 0.01 10^3/uL (0.0-0.2); Absolute Eosinophil Count 0.01 10^3/uL (0.0-0.7); Absolute Lymphocyte Count 0.81 10^3/uL (1.2-3.4); Absolute Monocyte Count 0.33 10^3/uL (0.1-0.8); Absolute Neutrophil Count 2.21 10^3/uL (1.2-6.7); Basophils % 0.3 %; Eosinophils % 0.3 %; HCT 35.2 % (36.0-46.0); Immature Grans % 0.3 %; MCHC 34.1 % (32.0-36.0); MCV 94 fL (80-95); MPV 10.3 fL (8.0-11.0); Monocytes % 9.8 %; Neutrophils % 65.3 %; Platelet Count 142 10^3/uL (130-400); RBC 3.75 10^6/uL (3.93-5.22); RDW 14.4 % (11.7-14.6); RDW-SD 48.8 fL; WBC 3.38 10^3/uL (4.4-10.8)
[2024-07-09 09:55] LABS: ESR 18 mm/hr (0-20)
[2024-07-09 10:16] LABS: ALT 89 U/L (14-59); AST 49 U/L (15-37); Alkaline Phosphatase 109 U/L (46-116); Anion Gap 11.2 mmol/L (3-11); BUN 14 mg/dL (7-18); Bilirubin, Total 0.74 mg/dL (0.2-1.0); CO2 25.8 mmol/L (21.0-32.0); CREATININE 0.8 mg/dL (0.55-1.02); Calcium 9.5 mg/dL (8.5-10.1); Chloride 107 mmol/L (98-107); Estimated GFR 97.87 (mL/min/1.73m2); Glucose 88 mg/dL (74-106); HCG Quant, Pregnancy 1 mIU/mL (1-3); Potassium 3.7 mmol/L (3.5-5.1); Sodium 144 mmol/L (136-145); Total Protein 8.2 g/dL (6.4-8.2)
== END 2024-07-17 23:59 | disposition home or self-care (01) ==
LOC: INF 03:13
PROVIDERS: PCP Physician Assistant; Visit Provider Internal Medicine Hematology & Oncology
DX: C81.28 Mixed cellularity Hodgkin lymphoma, lymph nodes of multiple sites (principal); Z52.011 Autologous donor, stem cells; Z45.2 Encounter for adjustment and management of vascular access device
CPT/HCPCS: 36591; 80053; 85652; 84702; 85025

== ENCOUNTER 2024-08-06 02:09 | Outpatient (RCR) | payer OTHER, SELFPAY ==
[2024-08-06] MEDS: Normal Saline Flush 10 ML SYR IVP (09:20)
[2024-08-06 09:53] LABS: Abs Immature Grans 0.01 10^3/uL (0.0-0.06); Absolute Basophil Count 0.01 10^3/uL (0.0-0.2); Absolute Eosinophil Count 0.02 10^3/uL (0.0-0.7); Absolute Monocyte Count 0.37 10^3/uL (0.1-0.8); Basophils % 0.3 %; Eosinophils % 0.6 %; HCT 35.5 % (36.0-46.0); Immature Grans % 0.3 %; Lymphocytes % 20.5 %; MCH 31.5 pg (27.0-33.0); MCHC 33.8 % (32.0-36.0); MCV 93 fL (80-95); MPV 10.4 fL (8.0-11.0); Monocytes % 10.9 %; Neutrophils % 67.4 %; Platelet Count 165 10^3/uL (130-400); RBC 3.81 10^6/uL (3.93-5.22); RDW 14.3 % (11.7-14.6); RDW-SD 48.2 fL; WBC 3.41 10^3/uL (4.4-10.8)
[2024-08-06 09:55] LABS: ESR 16 mm/hr (0-20)
[2024-08-06 10:09] LABS: ALT 69 U/L (14-59); AST 37 U/L (15-37); Albumin 3.9 g/dL (3.4-5.0); Alkaline Phosphatase 103 U/L (46-116); Anion Gap 8.8 mmol/L (3-11); BUN 13 mg/dL (7-18); Bilirubin, Total 0.68 mg/dL (0.2-1.0); CO2 26.2 mmol/L (21.0-32.0); CREATININE 0.7 mg/dL (0.55-1.02); Calcium 9.3 mg/dL (8.5-10.1); Chloride 107 mmol/L (98-107); Estimated GFR 114.88 (mL/min/1.73m2); Glucose 95 mg/dL (74-106); LDH 208 U/L (81-234); Potassium 3.9 mmol/L (3.5-5.1); Sodium 142 mmol/L (136-145); Total Protein 7.9 g/dL (6.4-8.2)
[2024-08-06 10:14] LABS: HCG Quant, Pregnancy 2 mIU/mL (1-3)
== END 2024-08-16 23:59 | disposition home or self-care (01) ==
LOC: INF 02:09
PROVIDERS: Nurse Practitioner Adult Health; PCP Physician Assistant; Visit Provider Internal Medicine Hematology & Oncology
DX: Z52.011 Autologous donor, stem cells (principal); C81.28 Mixed cellularity Hodgkin lymphoma, lymph nodes of multiple sites
CPT/HCPCS: 36591; 80053; 85652; 96523; 83615; 84702; 85025

== ENCOUNTER 2024-10-22 00:49 | Outpatient (RCR) | payer OTHER, SELFPAY ==
[2024-10-22] MEDS: Normal Saline Flush 10 ML SYR IVP (09:07)
[2024-10-22 09:23] LABS: Abs Immature Grans 0.01 10^3/uL (0.0-0.06); Absolute Basophil Count 0.01 10^3/uL (0.0-0.2); Absolute Eosinophil Count 0.28 10^3/uL (0.0-0.7); Absolute Lymphocyte Count 0.97 10^3/uL (1.2-3.4); Absolute Monocyte Count 0.19 10^3/uL (0.1-0.8); Absolute Neutrophil Count 1.86 10^3/uL (1.2-6.7); Basophils % 0.3 %; Eosinophils % 8.4 %; HCT 35.6 % (36.0-46.0); HGB 12.1 g/dL (11.2-15.7); Immature Grans % 0.3 %; Lymphocytes % 29.2 %; MCH 30.9 pg (27.0-33.0); MCV 91 fL (80-95); MPV 9.8 fL (8.0-11.0); Monocytes % 5.7 %; Neutrophils % 56.1 %; Platelet Count 165 10^3/uL (130-400); RBC 3.91 10^6/uL (3.93-5.22); RDW 13.4 % (11.7-14.6); RDW-SD 43.9 fL; WBC 3.32 10^3/uL (4.4-10.8)
[2024-10-22 09:25] LABS: ESR 19 mm/hr (0-20)
[2024-10-22 09:52] LABS: ALT 40 U/L (14-59); AST 24 U/L (15-37); Albumin 3.8 g/dL (3.4-5.0); Alkaline Phosphatase 84 U/L (46-116); Anion Gap 8.9 mmol/L (3-11); BUN 10 mg/dL (7-18); Bilirubin, Total 0.51 mg/dL (0.2-1.0); CO2 28.1 mmol/L (21.0-32.0); CREATININE 0.8 mg/dL (0.55-1.02); Calcium 9.4 mg/dL (8.5-10.1); Chloride 101 mmol/L (98-107); Estimated GFR 97.87 (mL/min/1.73m2); Glucose 122 mg/dL (74-106); Potassium 3.9 mmol/L (3.5-5.1); Sodium 138 mmol/L (136-145); Total Protein 7.9 g/dL (6.4-8.2)
[2024-10-22 09:53] LABS: HCG Quant, Pregnancy < 1 mIU/mL (1-3)
== END 2024-11-14 23:59 | disposition home or self-care (01) ==
LOC: INF 00:49
PROVIDERS: Nurse Practitioner Adult Health; PCP Internal Medicine Hematology & Oncology; Referring Provider Internal Medicine Hematology & Oncology; Visit Provider Internal Medicine Hematology & Oncology
DX: C81.28 Mixed cellularity Hodgkin lymphoma, lymph nodes of multiple sites (principal)
CPT/HCPCS: 36591; 80053; 85652; 84702; 85025

== ENCOUNTER 2025-03-04 03:18 | Outpatient (CLI) | payer OTHER, SELFPAY ==
[2025-03-04 09:04] LABS: Abs Immature Grans 0.01 10^3/uL (0.0-0.06); Absolute Basophil Count 0.01 10^3/uL (0.0-0.2); Absolute Eosinophil Count 0.13 10^3/uL (0.0-0.7); Absolute Monocyte Count 0.33 10^3/uL (0.1-0.8); Absolute Neutrophil Count 2.53 10^3/uL (1.2-6.7); Basophils % 0.2 %; HGB 13.2 g/dL (11.2-15.7); Immature Grans % 0.2 %; Lymphocytes % 30.2 %; MCH 31.3 pg (27.0-33.0); MCHC 34.7 % (32.0-36.0); MCV 90 fL (80-95); MPV 8.9 fL (8.0-11.0); Monocytes % 7.7 %; Neutrophils % 58.7 %; Platelet Count 174 10^3/uL (130-400); RBC 4.22 10^6/uL (3.93-5.22); RDW 12.7 % (11.7-14.6); RDW-SD 41.9 fL; WBC 4.31 10^3/uL (4.4-10.8)
[2025-03-04 09:09] LABS: ESR 12 mm/hr (0-20)
[2025-03-04 09:22] LABS: ALT 39 U/L (14-59); AST 20 U/L (15-37); Albumin 4.1 g/dL (3.4-5.0); Alkaline Phosphatase 67 U/L (46-116); BUN 12 mg/dL (7-18); Bilirubin, Total 0.7 mg/dL (0.2-1.0); CREATININE 0.7 mg/dL (0.55-1.02); Calcium 9.2 mg/dL (8.5-10.1); Chloride 104 mmol/L (98-107); Estimated GFR 114.88 (mL/min/1.73m2); Glucose 107 mg/dL (74-106); LDH 146 U/L (81-234); Potassium 4.2 mmol/L (3.5-5.1); Sodium 140 mmol/L (136-145); Total Protein 8.1 g/dL (6.4-8.2)
== END 2025-03-04 03:19 | disposition home or self-care (01) ==
LOC: LBO 03:18
PROVIDERS: PCP Physician Assistant; Visit Provider Nurse Practitioner Adult Health
DX: C81.28 Mixed cellularity Hodgkin lymphoma, lymph nodes of multiple sites (principal)
CPT/HCPCS: 36415; 80053; 85652; 83615; 85025